=== PATIENT | female | born 1985 | race Asian ===

== ENCOUNTER 2016-12-21 09:39 | Outpatient (CLI) | payer OTHER ==
[2016-12-21 10:18] LABS: % BASOPHILS 0.4 % (0.0-2.0); % EOSINOPHILS 2.5 % (0.0-5.0); % LYMPHOCYTES 23.7 % (20.0-50.0); % MONOCYTES 4.6 % (2.0-10.0); % NEUTROPHILS 68.8 % (40.0-80.0); HEMOGLOBIN 13.7 gm/dL (11.7-15.5); MEAN CORPUSCULAR HEMOGLOBIN 28.3 pg (27.0-31.0); MEAN CORPUSCULAR HGB CONC 34.1 pg (28.0-36.0); MEAN PLATELET VOLUME 7.8 fl; NEUTROPHILE ABSOLUTE 4.4 Th/cmm (1.8-8.0); PLATELET COUNT 245 Th/cmm (150-400); RED BLOOD COUNT 4.82 Mil/cmm (3.80-5.10); RED CELL DISTRIBUTION WIDTH 12.1 % (11.5-20.0); WHITE BLOOD COUNT 6.4 Th/cmm (4.8-10.8)
[2016-12-21 10:48] LABS: GLUCOSE FASTING 84 mg/dL (70-105)
[2016-12-21 10:56] LABS: HCG QUANT 159757 mIU/mL
[2016-12-21 11:42] LABS: 1 HR GLUCOSE 113 mg/dL
[2016-12-21 12:23] LABS: URINE BILIRUBIN NEGATIVE (NEGATIVE); URINE COLOR YELLOW; URINE GLUCOSE (UA) NEGATIVE (NEGATIVE); URINE KETONE NEGATIVE (NEGATIVE)
[2016-12-21 12:24] LABS: URINE BACTERIA OCCASIONAL /hpf (NONE SEEN); URINE BLOOD NEGATIVE (NEGATIVE); URINE EPITHELIAL CELLS FEW /lpf (FEW); URINE PROTEIN NEGATIVE (NEGATIVE); URINE RBC 0-1 /hpf (0-5); URINE WBC 0-2 /hpf (0-5)
[2016-12-22 15:19] LABS: CHLAMYDIA DNA SDA PROBETEC Negative (Negative); GC DNA SDA PROBETEC Negative (Negative)
== END 2016-12-21 10:00 | disposition home or self-care (01) ==
LOC: LAB 09:39
DX: Z11.3 Encounter for screening for infections with a predominantly sexual mode of transmission (principal); N30.00 Acute cystitis without hematuria
CPT/HCPCS: 36415-UA; 81001-TC; 83036-90; 84702-TC; 85025-TC; 86703-TC; 87086-90; 87491-90

== ENCOUNTER → 2017-04-19 | Outpatient (CLI) | payer OTHER ==
[2017-04-19 09:40] LABS: % BASOPHILS 0.3 % (0.0-2.0); % EOSINOPHILS 1.4 % (0.0-5.0); % LYMPHOCYTES 18.2 % (20.0-50.0); % MONOCYTES 5.2 % (2.0-10.0); % NEUTROPHILS 74.9 % (40.0-80.0); MEAN CELL VOLUME 81.4 fl (81-100); MEAN CORPUSCULAR HEMOGLOBIN 27.4 pg (27.0-31.0); MEAN CORPUSCULAR HGB CONC 33.7 pg (28.0-36.0); MEAN PLATELET VOLUME 7.5 fl; NEUTROPHILE ABSOLUTE 7.2 Th/cmm (1.8-8.0); PLATELET COUNT 259 Th/cmm (150-400); RED CELL DISTRIBUTION WIDTH 12.4 % (11.5-20.0)
[2017-04-19 09:42] LABS: HEMATOCRIT 32.5 % (35.0-45.0); WHITE BLOOD COUNT 9.5 Th/cmm (4.8-10.8)
[2017-04-20 10:41] LABS: GLUCOSE FASTING 75 mg/dL (70-105)
[2017-04-20 11:46] LABS: 1 HR GLUCOSE 138 mg/dL (70-105)
== END ==
LOC: LAB 09:10
DX: Z34.90 Encounter for supervision of normal pregnancy, unspecified, unspecified trimester (principal); Z3A.00 Weeks of gestation of pregnancy not specified
CPT/HCPCS: 36415-UA; 85025-TC

== ENCOUNTER 2017-04-21 12:04 | Outpatient (CLI) | payer OTHER | END 2017-04-21 12:20 | disposition home or self-care (01) | LOC: EEVIPCON 12:04 → LAB 12:04 | DX: Z34.00 Encounter for supervision of normal first pregnancy, unspecified trimester (principal); Z3A.00 Weeks of gestation of pregnancy not specified | CPT/HCPCS: 36415-UA; 86592-TC; 86706-90; 86762-90; 86850-TC; 86900-TC; 86901-TC ==

== ENCOUNTER 2018-05-01 14:10 | Outpatient (CLI) | payer OTHER ==
[2018-05-01 15:14] LABS: ALB/GLOB RATIO 1.7 (1.0-1.8); ALBUMIN 4.5 gm/dL (3.7-5.3); ALKALINE PHOSPHATASE 67 U/L (34-104); BILIRUBIN,TOTAL 0.4 mg/dL (0.3-1.0); BUN - UREA NITROGEN 13 mg/dL (7-25); CALCIUM SERUM 9.2 mg/dL (8.6-10.3); CARBON DIOXIDE 26.9 mEq/L (21.0-31.0); CHLORIDE 102 mEq/L (98-107); CHOLESTEROL 162 mg/dL (<200); CREATININE - SERUM 0.7 mg/dL (0.6-1.2); GFR AFRICAN-AMERICAN > 60.0 ml/min (>90); GFR NON AFRICAN-AMERICAN > 60.0 ml/min; GLUCOSE 96 mg/dL (70-105); HDL -HIGH DENSITY LIPOPROTEIN 41 mg/dL (23-92); POTASSIUM SERUM 3.9 mEq/L (3.5-5.1); SGOT 11 U/L (13-39); SGPT/ALT 7 U/L (7-52); SODIUM SERUM 134 mEq/L (136-145); TOTAL PROTEIN,SERUM 7.2 gm/dL (6.0-8.3); TRIGLYCERIDES 78 mg/dL (<150)
[2018-05-01 15:46] LABS: % BASOPHILS 0.3 % (0.0-2.0); % EOSINOPHILS 4.7 % (0.0-5.0); % LYMPHOCYTES 27.6 % (20.0-50.0); % MONOCYTES 4.3 % (2.0-10.0); % NEUTROPHILS 63.1 % (40.0-80.0); EOSINOPHILE ABSOLUTE 0.3 Th/cmm (0.1-0.4); HEMATOCRIT 39.4 % (41.0-60); HEMOGLOBIN 13.3 gm/dL (12-16); LYMPHOCYTE ABSOLUTE 1.9 Th/cmm (1.5-3.0); MEAN CELL VOLUME 80.2 fl (81-100); MEAN CORPUSCULAR HGB CONC 33.7 pg (28.0-36.0); MEAN PLATELET VOLUME 8.3 fl; MONOCYTE ABSOLUTE 0.3 Th/cmm (0.3-1.0); NEUTROPHILE ABSOLUTE 4.5 Th/cmm (1.8-8.0); PLATELET COUNT 322 Th/cmm (150-400); RED BLOOD COUNT 4.91 Mil/cmm (3.80-5.10); RED CELL DISTRIBUTION WIDTH 13.2 % (11.5-20.0)
--- NOTE | 2018-05-02 11:25 | Diagnostic Imaging Report ---
Left elbow (3 views) HISTORY: Pain No acute bony abnormalities. No fractures identified at this time. Joint space appears normal. No radiographic evidence of a joint effusion. IMPRESSION: Normal examination. In the presence of recent trauma and persistent symptoms, a repeat radiograph in 5-7 days may be helpful for detection of a subtle or occult fracture.
[2018-05-03 12:15] LABS: ANTI-NUCLEAR AB SCREEN Negative; RA RHEUMATOID FACTOR <10.0 IU/mL (0.0-13.9)
== END 2018-05-01 14:50 | disposition home or self-care (01) ==
LOC: RAD 14:10
PROVIDERS: ATTEND Internal Medicine
DX: M25.522 Pain in left elbow (principal); R79.89 Other specified abnormal findings of blood chemistry
CPT/HCPCS: 36415-UA; 73080-TC-LT; 80053-TC; 80061-TC; 84443-TC; 85025-TC; 86038-90; 86430-90